=== PATIENT | female | born 1985 | race Caucasian/White ===

== ENCOUNTER 2018-12-03 10:56 | Emergency (ER) | payer OTHER ==
[2018-12-03 11:33] VITALS: BP 125/93
--- NOTE | 2018-12-03 12:16 | UC ---
Knee Pain HPI - HPI Summary HPI Summary: 33 year old female present with worsening left knee pain, redness and swelling over the past day. She denies associated fever but did feel chilled yesterday. She notes a bump (bite or pimple) over her knee cap where the redness started. Describes pain as 9/10 and is unable to flex and extend without pain. - History of Current Complaint Chief Complaint: UCLowerExtremity Stated Complaint: L KNEE PAIN & SWELLING (NO INJ) Time Seen by Provider: 12/03/18 11:37 Hx Obtained From: Patient Hx Last Menstrual Period: unknown Onset/Duration: Sudden Onset, Lasting Days - One Severity Currently: Severe Pain Intensity: 9 Pain Scale Used: 0-10 Numeric Character: Sharp, Throbbing Aggravating Factor(s): Movement, Weight Bearing Associated Signs And Symptoms: Positive: Swelling, Redness Able to Bear Weight: Yes - with pain - Allergies/Home Medications Allergies/Adverse Reactions: Allergies Allergy/AdvReac Type Severity Reaction Status Date / Time No Known Allergies Allergy Verified 12/03/18 11:28 Home Medications: Home Medications Ibuprofen TAB* [Advil TAB*] 400 mg PO Q6H PRN 12/03/18 [History Confirmed ] Levonorgestrel-Ethin Estradiol [Levonorgestrel and Ethiny 90-20 Mcg] 1 tab PO DAILY 12/03/18 [History Confirmed 12/03/18] PMH/Surg Hx/FS Hx/Imm Hx Previously Healthy: Yes - Surgical History Surgical History: None - Family History Known Family History: Positive: Non-Contributory - Social History Alcohol Use: None Substance Use Type: None Smoking Status (MU): Never Smoked Tobacco Review of Systems All Other Systems Reviewed And Are Negative: Yes Constitutional: Positive: Chills Skin: Positive: Rash - redness of left knee Eyes: Positive: Negative ENT: Positive: Negative Respiratory: Positive: Negative Cardiovascular: Positive: Negative Gastrointestinal: Negative: Abdominal Pain, Vomiting, Diarrhea, Nausea Genitourinary: Positive: Negative Motor: Positive: Decreased ROM - pain with flexion and extension of left knee. Musculoskeletal: Positive: Arthralgia - left knee Neurological: Positive: Negative Psychological: Positive: Negative Is Patient Immunocompromised?: No Physical Exam Triage Information Reviewed: Yes Appearance: Pain Distress Vital Signs: Initial Vital Signs Temp 99 F 12/03/18 11:29 Pulse 78 12/03/18 11:29 Resp 18 12/03/18 11:29 BP 125/93 12/03/18 11:29 Pulse Ox 100 12/03/18 11:29 Vital Signs Reviewed: Yes Eye Exam: Normal ENT Exam: Normal Neck exam: Normal Respiratory: Positive: Lungs clear, Normal breath sounds Cardiovascular: Positive: RRR, No Murmur Abdomen Description: Positive: Nontender, Soft Musculoskeletal: Positive: ROM Limited @ - left knee due to pain. Neurological Exam: Normal Psychological Exam: Normal Skin: Positive: Rashes - erythema of left knee with warmth and tenderness. Knee Pain Course/Dx - Course Course Of Treatment: Sx of pain 9/10, erythema and pain with flexion and extension of left knee. Concern is for a septic knee joint requiring further evaluation in the ED including lab testing. - Differential Dx/Diagnosis Differential Diagnosis/HQI/PQRI: Other - Septic joint Provider Diagnosis: Cellulitis of knee, left, Swelling of knee joint, left Discharge ED - Sign-Out/Discharge Documenting (check all that apply): Patient Departure All imaging exams completed and their final reports reviewed: No Studies - Discharge Plan Condition: Fair Disposition: HOME-RECOMMEND TO ED Patient Education Materials: Swollen Joint (ED) Referrals: Melissa See PA [Primary Care Provider] - Additional Instructions: Concern if for an infection in your knee (septic knee joint). This requires further evaluation and treatment in the Emergency Department. - Billing Disposition and Condition Condition: FAIR Disposition: Home-Recommend to ED
== END 2018-12-03 12:24 | disposition home health service (06) ==
LOC: UCCORT 10:56
DX: L03.116 Cellulitis of left lower limb (principal); M25.462 Effusion, left knee; Z79.3 Long term (current) use of hormonal contraceptives
CPT/HCPCS: 99212; G0463